=== PATIENT | male | born 1950 | race Caucasian/White ===

== ENCOUNTER 2016-12-08 11:20 | Emergency (ER) | payer OTHER ==
[2016-12-08] MEDS ORDERED: Sodium Chloride 0.9% 1,000 ML ONE (11:32)
[2016-12-08] MEDS ORDERED: ONDANSETRON 4 MG/2 ML VIAL IVP ONE (11:41)
[2016-12-08] MEDS ORDERED: NORMAL SALINE 10 ML SYRINGE FLUSH IVP PRN (11:41)
[2016-12-08] MEDS ORDERED: Pantoprazole Inj 80 MG in Normal Saline Flush 10 ML IVP ONE (11:44)
[2016-12-08] MEDS ORDERED: Sodium Chloride 0.9% 1,000 ML, Magnesium Sulfate 2gm (Premix) 50 ML with Multivitamin I... IV ONE ×5 (11:44)
[2016-12-08 11:45] VITALS: RESP 16
--- NOTE | 2016-12-08 11:51 | PDOC ---
General Adult HPI - General Chief Complaint: Drug / Alcohol Use &/or Abuse Stated Complaint: ETOH USE/ SPITTING BLOOD Date Seen by Provider: 12/08/16 Time Seen by Provider: 11:35 Source: POSITIVE: Patient Exam Limitations: POSITIVE: No limitations Nurse's Notes Reviewed & Considered: Yes - History of Present Illness Initial Comment: The patient is a 66-year-old male who presents to the emergency department stating that he does not want to live anymore and he is tired of drinking. He states he has a long-standing history of alcohol abuse since he was young. He states that he currently drinks anywhere from a pint to a fifth a day. He states that he did bring a fifth with him here to the emergency room and was drinking it in the waiting room. He states that the day before yesterday he was vomiting up some darkish colored blood. This seems to have stopped currently. He did have some dark stool a couple of days ago however has not had a bowel movement now for the past 24 hours. He states that he is just sick of living. He does not take any prescription medications at home and states that other than the alcoholism he has been generally healthy. 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 He currently denies any nausea or abdominal pain. He denies taking any over-the- counter medications or doing anything else and an attempt to harm himself. He states he just doesn't really see any reason to go on living. Have you received a tetanus shot in the past 10 years?: Unknown - Patient Home Medications Home Medications: Home Medications Albuterol Sulfate [ALBUTEROL NEB SOLN] 5 mg NEB PRN PRN 05/05/15 Citalopram HBr [Celexa Tab] 40 mg PO DAILY 05/05/[address] [PriLOSEC Cap] 20 mg PO DAILY 05/05/15 - Patient Allergies Allergies/Adverse Reactions: Allergies Allergy/AdvReac Type Severity Reaction Status Date / Time No Known Allergies Allergy Verified 05/11/15 06:24 Past Medical History - heen HEENT History: Denies History Cardiovascular History: Denies History Respiratory History: COPD, Emphysema Gastrointestinal History: GERD Genitourinary History: Denies History Endocrine History: Denies History Musculoskeletal History: Denies History Prosthesis or Implant: No Neurological History: Denies History Blood Disorders: Denies History Psychiatric History: Depression, Other (please comment) Additional Psychiatric History: suicidal history, previously attempted x 1 "attaching hose to car", "20 years ago" In Past Year Been Physically Harmed or Verbally Threatened: No History of MDRO: No Tobacco Use: Never Smoker Alcohol Use: Heavy Substance Use Type: None Previous Surgical History: Yes Type / Date of Surgery: tonsils Past Medical History Reviewed: Reviewed - No Changes ROS - Limitations ROS Limitations: No Limitations, Intoxication Constitution: REPORTS: Denies Symptoms Cardiovascular: REPORTS: Denies Cardiac Symptoms Respiratory: REPORTS: Denies Resp Symptoms Neurological: REPORTS: Denies Neuro Symptoms Gastrointestinal: REPORTS: Vomitting (Vomiting some darkish colored blood a couple of days ago, none in the last 24 hours), Black Stools (A couple of days ago none in the last 24 hours). DENIES: Abdominal Pain, Nausea Endocrine: REPORTS: Denies Symptoms Musculoskeletal: REPORTS: Denies MS Symptoms Eyes: REPORTS: Denies Symptoms ENT: REPORTS: Denies Symptoms Skin: DENIES: Rash General Adult Exam - General Appearance General Appearance: POSITIVE: Alert, No Acute Distress, Other (He is intoxicated on arrival) - HEENT HEENT: POSITIVE: Head Inspection Nml, Eyes Inspection Nml, Ears Inspection Nml, Pharynx Inspect. Nml, PERRL, EOMI, Dry Mucous Membranes - Neck Neck: POSITIVE: Normal Inspection. NEGATIVE: Lymphadenopathy - Respiratory Respiratory: POSITIVE: No Respiratory Distress, Breath Sounds Normal - Cardiovascular Cardiovascular: POSITIVE: Regular Rate & Rhythm, No Murmur Peripheral Pulses: Dorsalis-pedis (R): 2+, Dorsalis-pedis (L): 2+ - Abdomen Abdomen: Soft: (All Quadrants), Denies Tenderness: (All Quadrants), No Distention: (All Quadrants) - Back Back: POSITIVE: Normal Inspection - Skin Skin: POSITIVE: Normal Color, No Rash - Extremities Extremity: Normal ROM: (All Extremities), Normal Inspection: (All Extremities) - Neurological / Psychological Neurological: POSITIVE: Oriented X3, Motor Normal, Sensation Normal General Adult Progress - Results Reviewed by me Lab Results Reviewed: Yes Lab Results:: Laboratory Results 12/08/16 Range/Units 12:00 WBC 6.62 (4.8-10.8) 10^3/uL RBC 4.96 (4.70-6.10) 10^6/uL Hgb 14.9 (14.0-18.0) g/dL Hct 45.7 (42.0-52.0) % MCV 92.1 H (80-90) FL MCH 30.0 (27-31) PG MCHC 32.6 L (33-37) g/dL RDW Std Deviation 49.4 (39-50) fL RDW Coeff of Ishan 15.0 H (11.5-14.5) % Plt Count 264 (140-350) 10*3/uL MPV 10.0 (7.4-12.2) FL Immature Gran % (Auto) 0.3 (0-5) % Neut % (Auto) 67.4 (50-80) % Lymph % (Auto) 21.8 (10-50) % [place] % (Auto) 9.7 (5-15) % Eos % (Auto) 0 (0-8) % Baso % (Auto) 0.8 (0-1) % Immature Gran # (Auto) 0.02 10*3/UL Neut # (Auto) 4.47 10*3/UL Lymph # (Auto) 1.44 10*3/uL [place] # (Auto) 0.64 (0.3-0.8) 10*3/UL Eos # (Auto) 0 10*3/UL Baso # (Auto) 0.05 10*3/UL WBC Morphology Comment Normal morphology (NORM) Plt Morphology Comment Normal morphology (NORM) RBC Morph Comment Normal morphology (NORM) PT 10.2 (9.7-11.4) secs INR 0.99 (0.00-5.90) N/A Sodium 141 (135-145) meq/L Potassium 4.6 (3.8-5.2) meq/L Chloride 98 (98-112) meq/L Carbon Dioxide 16 L (23-33) meq/L Anion Gap 27 H (5-20) BUN 17 (7-22) mg/dL Creatinine 1.1 (0.70-1.50) mg/dL Estimated GFR > 60 (>60 ml/min/1.73m(2)) BUN/Creatinine Ratio 15.45 (6-20) Glucose 59 L (78-110) mg/dL Calculated Osmolality 291.0 (267-292) mOsm/kg Calcium 9.0 (8.7-10.7) mg/dL Magnesium 1.7 (1.6-2.4) mg/dL Total Bilirubin 1.1 (0.3-1.2) mg/dL AST 338 H (21-57) IU/L ALT 176 H (21-72) IU/L Alkaline Phosphatase 104 (38-126) IU/L Total Protein 8.5 H (6.1-8.0) g/dL Albumin 4.8 (3.5-4.8) g/dL Globulin 3.7 (2.50-4.10) g/dL Albumin/Globulin Ratio 1.20 L (1.3-2.0) mg/g Amylase 59 (30-110) U/L Lipase 94 (23-300) IU/L TSH 1.04 (0.2700-4.2000) uIU/mL Salicylates < 1.0 (0-20) mg/dl Acetaminophen < 10.0 (0-30) ug/mL Serum Alcohol 298 H (0-10) mg/dL EKG Interpreted/Reviewed By Me:: Yes EKG Interpretation:: POSITIVE: Normal Sinus Rhythm, Normal Rate, Normal Intervals, Normal QRS, Normal ST/T, Other (No acute changes) - Patient's Progress MDM / ED Course: An IV was established and the patient did receive a banana bag. He also received Zofran 4 mg IV and Protonix 80 mg IV. [facility] consultation was obtained secondary to suicidal ideation. He did become somewhat anxious and received a dose of Ativan 1 mg IV. He had no emesis here in the emergency room. He remains hemodynamically stable. His H&H is stable. He was evaluated by the counselor from [facility]. He is requesting help with detox. She is in the process of having him evaluated for the detox at [facility]. His lab work is all essentially unremarkable except for an elevated blood alcohol at 298 on arrival. He also has mildly elevated liver enzymes. At this point the patient is medically stable and we are waiting to see if he is approved for detox. The patient was accepted at [facility]. Would recommend continuation of a proton pump inhibitor for treatment of gastritis. He will be transferred to [facility] by ambulance. - Consult Counseled: POSITIVE: Patient, RE: Lab Results, RE: DX Patient Care Time - Estimated PCT Patient Care Time (In Minutes): 55 Vital Signs - Recent Vital Signs Vital Signs: Vital Signs (Last 8 hours) Temp Pulse Pulse Resp BP BP Pulse Ox 12/08/16 15:49 97.8 F 92 16 151/78 12/08/16 11:27 98.6 F 105 H 105 H 16 140/120 140/120 90 - VS Reviewed Vital Signs Reviewed: Yes Discharge Clinical Impression: Alcohol abuse, Hepatitis C, Alcohol intoxication, Alcoholic gastritis Condition: Fair Follow Up With: NONE,NONE [Primary Care Provider] - Date Decision to Transfer to Another Facility: 12/08/16 Time Decision to Transfer to Another Facility: 18:15
[2016-12-08] MEDS: LORazepam 2 MG/1 ML VIAL IVP ONE ×2 (12:00→15:53)
[2016-12-08] MEDS ORDERED: ONDANSETRON 4 MG/2 ML VIAL ONE (12:05)
[2016-12-08] MEDS ORDERED: PANTOPRAZOLE IV 40 MG VIAL ONE (12:06)
[2016-12-08] MEDS ORDERED: LORazepam 2 MG/1 ML VIAL ONE (12:06)
--- NOTE | 2016-12-08 12:10 | EKG ---
[address] [address] Measurements Intervals [place] Rate: 93 P: 53 LA: 164 QRS: 29 QRSD: 102 T: -6 QT: 389 QTc: 440 Interpretive Statements SINUS RHYTHM NONSPECIFIC T-WAVE ABNORMALITY Compared to ECG 05/05/2015 12:39:57 T-wave abnormality now present Sinus tachycardia no longer present ST (T wave) deviation no longer present Electronically Signed On 12-08-16 14:40:27 MDT by Regis Hickey MD [email or web address]
[2016-12-08 12:14] LABS: BASOPHILS # (AUTO) 0.05 10*3/UL; BASOPHILS % (AUTO) 0.8 % (0-1); EOSINOPHILS # (AUTO) 0 10*3/UL; EOSINOPHILS % (AUTO) 0 % (0-8); HEMATOCRIT 45.7 % (42.0-52.0); HEMOGLOBIN 14.9 g/dL (14.0-18.0); LYMPHOCYTES # (AUTO) 1.44 10*3/uL; MEAN CORPUSCULAR HGB CONC 32.6 g/dL (33-37); MONOCYTES # (AUTO) 0.64 10*3/UL (0.3-0.8); MONOCYTES % (AUTO) 9.7 % (5-15); NEUTROPHILS # (AUTO) 4.47 10*3/UL; NEUTROPHILS % (AUTO) 67.4 % (50-80); RED BLOOD COUNT 4.96 10^6/uL (4.70-6.10)
[2016-12-08 12:20] LABS: PLATELET MORPHOLOGY COMMENT NORMAL MORPHOLOGY (NORM); RBC MORPHOLOGY COMMENT NORMAL MORPHOLOGY (NORM); WBC MORPHOLOGY COMMENT NORMAL MORPHOLOGY (NORM)
[2016-12-08] MEDS ORDERED: Sodium Chloride 0.9% 1,000 ML PRIMARY IV ONE (12:20)
[2016-12-08] MEDS ORDERED: Sodium Chloride 0.9% 1,000 ML with Multivitamin Inj 10 ML, Thiamine Inj 100 MG, Folic A... IV ONE ×5 (12:30)
[2016-12-08 12:39] LABS: BLOOD UREA NITROGEN 17 mg/dL (7-22); BUN/CREATININE RATIO 15.45 (6-20); EST GLOMERULAR FILTRATION > 60 (>60 ml/min/1.73m(2)); MAGNESIUM 1.7 mg/dL (1.6-2.4); SERUM ALBUMIN 4.8 g/dL (3.5-4.8)
[2016-12-08 12:40] LABS: LIPASE 94 IU/L (23-300)
[2016-12-08 12:50] LABS: SALICYLATE < 1.0 mg/dl (0-20)
[2016-12-08 18:37] LABS: BILIRUBIN,URINE SMALL (NEG); CLARITY,URINE CLEAR (CLEAR); COLOR,URINE YELLOW; GLUCOSE, URINE (UA) NEGATIVE (NEG); NITRATE,URINE NEGATIVE (NEG); OCCULT BLOOD,URINE NEGATIVE (NEG); PROTEIN,URINE 30 mg/dl (NEG)
[2016-12-08 18:42] LABS: URINE SAMPLE TYPE CLEAN CATCH URINE
[2016-12-08 18:47] LABS: AMPHETAMINE SCREEN NEGATIVE (NEG); BARBITURATE SCREEN, URINE NEGATIVE (NEG); CANNABINOID SCREEN,URINE NEGATIVE (NEG); COCAINE SCREEN NEGATIVE (NEG); METHADONE URINE SCREEN NEGATIVE (NEG); METHAMPHETAMINES SCREEN,URINE NEGATIVE (NEG); OPIATE SCREEN,URINE NEGATIVE (NEG); URINE SPECIFIC GRAVITY - MAN 1.025
[2016-12-08 18:54] LABS: BACTERIA,URINE RARE; RBC,URINE 0-1 /hpf; SQUAMOUS EPITHELIAL CELL,UR FEW; URINE CASTS MODERATE; WBC,URINE 0
[2016-12-08 22:21] VITALS: TEMP 98.2
== END 2016-12-08 19:11 ==
LOC: ER 11:20
DX: F10.129 Alcohol abuse with intoxication, unspecified (principal); K29.20 Alcoholic gastritis without bleeding; B19.20 Unspecified viral hepatitis C without hepatic coma
CPT/HCPCS: 80053; 80305; 80320; 80329 ×2; 81001; 81003; 82150; 83690; 83735; 84443; 85025; 85610; 93005; 93010; 96365; 96366; 96375; 99285 ×2; J3475; J2060; J2405; J3411; J3490; J7030

== ENCOUNTER → 2016-12-26 | Outpatient (CLI) | payer OTHER | LOC: MMPC 09:00 | PROVIDERS: ATTEND Family Medicine | DX: F31.81 Bipolar II disorder (principal); F10.20 Alcohol dependence, uncomplicated; I10 Essential (primary) hypertension; K21.9 Gastro-esophageal reflux disease without esophagitis | CPT/HCPCS: 99203; G0463 ==

== ENCOUNTER 2017-01-21 16:22 | Emergency (ER) | payer OTHER ==
[2017-01-21] MEDS ORDERED: ONDANSETRON 4 MG/2 ML VIAL IVP ONE ×2 (16:30→20:55)
[2017-01-21] MEDS ORDERED: NORMAL SALINE 10 ML SYRINGE FLUSH IVP PRN (16:30)
[2017-01-21] MEDS ORDERED: Pantoprazole Inj 40 MG in Normal Saline Flush 10 ML IVP ONE (16:31)
[2017-01-21 16:34] VITALS: RESP 16
[2017-01-21] MEDS ORDERED: Sodium Chloride 0.9% 1,000 ML, Magnesium Sulfate 2gm (Premix) 50 ML with Multivitamin I... IV ONE ×5 (16:34)
--- NOTE | 2017-01-21 16:40 | PDOC ---
General Adult HPI - General Chief Complaint: Drug / Alcohol Use &/or Abuse Stated Complaint: need to detox Date Seen by Provider: 01/21/17 Time Seen by Provider: 16:25 Source: POSITIVE: Patient Exam Limitations: POSITIVE: No limitations Nurse's Notes Reviewed & Considered: Yes - History of Present Illness Initial Comment: The patient is a 66-year-old male who presents to the emergency department with suicidal thoughts and desire to quit drinking. He reports that he has a long- standing history of alcohol abuse. He started drinking after a period of sobriety about 2 or 3 weeks ago. He has been drinking approximately a sixpack of beer and a pint of hard alcohol daily. He reports that since he started drinking his depression has worsened and he has started thinking about suicide. He reports that he has several razor blades and sharp knives at home and was thinking about cutting himself. He denies doing anything to harm himself yet at this point. He last drank just prior to coming here to the emergency room. He reports that he has been vomiting off and on the past couple of days. He denies any current abdominal pain. He denies any other associated complaints currently. He is requesting transfer to [facility]. Have you received a tetanus shot in the past 10 years?: Yes - Patient Home Medications Home Medications: Home Medications Albuterol Sulfate [ALBUTEROL NEB SOLN] 5 mg NEB PRN PRN 05/05/[address] [PriLOSEC Cap] 20 mg PO DAILY 05/05/15 Citalopram Hydrobromide [Citalopram Hbr] 1 tab PO DAILY #30 tab 12/26/16 Lisinopril 1 tab PO DAILY tab 12/26/16 - Patient Allergies Allergies/Adverse Reactions: Allergies Allergy/AdvReac Type Severity Reaction Status Date / Time No Known Allergies Allergy Verified 01/21/17 16:25 Past Medical History - heen HEENT History: Denies History Cardiovascular History: Hypertension Respiratory History: COPD, Emphysema Gastrointestinal History: GERD Genitourinary History: Denies History Endocrine History: Denies History Musculoskeletal History: Denies History Prosthesis or Implant: No Neurological History: Denies History Blood Disorders: Denies History Psychiatric History: Depression, Other (please comment) Additional Psychiatric History: suicidal history, previously attempted x 1 "attaching hose to car", "20 years ago" Male Reproductive History: Denies History Cancer History: Denies History In Past Year Been Physically Harmed or Verbally Threatened: No History of MDRO: No Tobacco Use: Never Smoker Alcohol Use: Heavy Type of alcohol normally used: Beer, Hard Liquor How much alcohol do you normally drink a day?: 1 pt and a 6 pack daily Substance Use Type: None Previous Surgical History: Yes Type / Date of Surgery: tonsils Significant Family History: No pertinent family hx Past Medical History Reviewed: Reviewed - No Changes ROS - Limitations ROS Limitations: No Limitations Constitution: DENIES: Chills, Fever Cardiovascular: DENIES: Chest Pain Respiratory: REPORTS: Denies Resp Symptoms Neurological: REPORTS: Denies Neuro Symptoms Gastrointestinal: REPORTS: Nausea, Vomitting. DENIES: Abdominal Pain, Black Stools, Bloody Stools Musculoskeletal: REPORTS: Denies MS Symptoms Eyes: REPORTS: Denies Symptoms ENT: REPORTS: Denies Symptoms General Adult Exam - General Appearance General Appearance: POSITIVE: Other (The patient is awake and cooperative, he does have depressed affect and limited eye contact) - HEENT HEENT: POSITIVE: Head Inspection Nml, Eyes Inspection Nml, Pharynx Inspect. Nml , PERRL, EOMI, Dry Mucous Membranes - Neck Neck: POSITIVE: Normal Inspection. NEGATIVE: Lymphadenopathy - Respiratory Respiratory: POSITIVE: No Respiratory Distress, Breath Sounds Normal - Cardiovascular Cardiovascular: POSITIVE: Regular Rate & Rhythm, No Murmur - Abdomen Abdomen: Soft: (All Quadrants), Denies Tenderness: (All Quadrants), No Distention: (All Quadrants) - Skin Skin: POSITIVE: Normal Color, No Rash - Extremities Extremity: Normal ROM: (All Extremities), Normal Inspection: (All Extremities) - Neurological / Psychological Neurological: POSITIVE: Oriented X3, Motor Normal, Sensation Normal General Adult Progress - Results Reviewed by me Lab Results Reviewed: Yes Lab Results:: Laboratory Results 01/21/17 Range/Units 16:40 WBC 8.67 (4.8-10.8) 10^3/uL RBC 5.05 (4.70-6.10) 10^6/uL Hgb 15.3 (14.0-18.0) g/dL Hct 45.9 (42.0-52.0) % MCV 90.9 H (80-90) FL MCH 30.3 (27-31) PG MCHC 33.3 (33-37) g/dL RDW Std Deviation 48.2 (39-50) fL RDW Coeff of Ishna 14.8 H (11.5-14.5) % Plt Count 345 (140-350) 10*3/uL MPV 9.4 (7.4-12.2) FL Immature Gran % (Auto) 0.3 (0-5) % Neut % (Auto) 80.8 H (50-80) % Lymph % (Auto) 13.3 (10-50) % [place] % (Auto) 5.0 (5-15) % Eos % (Auto) 0 (0-8) % Baso % (Auto) 0.6 (0-1) % Immature Gran # (Auto) 0.03 10*3/UL Neut # (Auto) 7.01 10*3/UL Lymph # (Auto) 1.15 10*3/uL [place] # (Auto) 0.43 (0.3-0.8) 10*3/UL Eos # (Auto) 0 10*3/UL Baso # (Auto) 0.05 10*3/UL WBC Morphology Comment Normal morphology (NORM) Plt Morphology Comment Normal morphology (NORM) RBC Morph Comment Normal morphology (NORM) Sodium 143 (135-145) meq/L Potassium 4.6 (3.8-5.2) meq/L Chloride 98 (98-112) meq/L Carbon Dioxide 10 L (23-33) meq/L Anion Gap 35 H (5-20) BUN 20 (7-22) mg/dL Creatinine 1.4 (0.70-1.50) mg/dL Estimated GFR 51 (>60 ml/min/1.73m(2)) BUN/Creatinine Ratio 14.28 (6-20) Glucose 63 L (78-110) mg/dL Calculated Osmolality 296.0 H (267-292) mOsm/kg Calcium 9.1 (8.7-10.7) mg/dL Magnesium 1.7 (1.6-2.4) mg/dL Total Bilirubin 0.8 (0.3-1.2) mg/dL AST 349 H (21-57) IU/L ALT 221 H (21-72) IU/L Alkaline Phosphatase 97 (38-126) IU/L Total Protein 8.3 H (6.1-8.0) g/dL Albumin 4.7 (3.5-4.8) g/dL Globulin 3.6 (2.50-4.10) g/dL Albumin/Globulin Ratio 1.30 (1.3-2.0) mg/g Amylase 90 (30-110) U/L Lipase 101 (23-300) IU/L TSH 1.18 (0.2700-4.2000) uIU/mL Salicylates < 1.0 (0-20) mg/dl Acetaminophen < 10.0 (0-30) ug/mL Serum Alcohol 233 H (0-10) mg/dL - Patient's Progress MDM / ED Course: An IV was established and the patient did receive a banana bag as well as Protonix 40 mg IV and Zofran 4 mg IV. Mental health consultation was obtained. While awaiting approval for acceptance at [facility] the patient started to become somewhat anxious. He did receive 2 doses of Ativan IV. He also had some recurrent nausea and received a second dose of Zofran. His blood sugar was slightly low on arrival and he was allowed to eat dinner. The patient's blood work is all essentially unremarkable except for the low blood sugar, in addition his bicarbonate was low and his anion gap was elevated. This is thought to be secondary to dehydration and alcohol use. He was accepted for admission at [facility] for treatment of suicidal ideation in detox at approximately 10 :30 PM. Arrangements will be made to transfer the patient I ambulance when one becomes available. - Consult Counseled: POSITIVE: Patient, RE: Lab Results, RE: DX Patient Care Time - Estimated PCT Patient Care Time (In Minutes): 35 Vital Signs - Recent Vital Signs Vital Signs: Vital Signs (Last 8 hours) Temp Pulse Pulse Resp BP BP Pulse Ox 01/21/17 16:34 96.4 F L 108 H 16 118/64 01/21/17 16:23 96.4 F L 108 H 16 118/64 91 - VS Reviewed Vital Signs Reviewed: Yes Discharge Clinical Impression: Alcohol intoxication, Vomiting, Suicidal ideation Discharge Disposition: Transferred to Psychiatric Facility Condition: Stable Date Decision to Transfer to Another Facility: 01/21/17 Time Decision to Transfer to Another Facility: 22:30
[2017-01-21] MEDS ORDERED: LORazepam 2 MG/1 ML VIAL IVP ONE (16:45)
[2017-01-21 16:55] LABS: BASOPHILS # (AUTO) 0.05 10*3/UL; BASOPHILS % (AUTO) 0.6 % (0-1); EOSINOPHILS # (AUTO) 0 10*3/UL; EOSINOPHILS % (AUTO) 0 % (0-8); HEMATOCRIT 45.9 % (42.0-52.0); HEMOGLOBIN 15.3 g/dL (14.0-18.0); LYMPHOCYTES # (AUTO) 1.15 10*3/uL; MEAN CORPUSCULAR HEMOGLOBIN 30.3 PG (27-31); MEAN CORPUSCULAR HGB CONC 33.3 g/dL (33-37); MEAN CORPUSCULAR VOLUME 90.9 FL (80-90); MEAN PLATELET VOLUME 9.4 FL (7.4-12.2); MONOCYTES # (AUTO) 0.43 10*3/UL (0.3-0.8); NEUTROPHILS # (AUTO) 7.01 10*3/UL; NEUTROPHILS % (AUTO) 80.8 % (50-80); RED BLOOD COUNT 5.05 10^6/uL (4.70-6.10)
[2017-01-21 16:56] LABS: PLATELET MORPHOLOGY COMMENT NORMAL MORPHOLOGY (NORM); RBC MORPHOLOGY COMMENT NORMAL MORPHOLOGY (NORM); WBC MORPHOLOGY COMMENT NORMAL MORPHOLOGY (NORM)
[2017-01-21 17:05] LABS: LIPASE 101 IU/L (23-300)
[2017-01-21 17:16] LABS: BLOOD UREA NITROGEN 20 mg/dL (7-22); BUN/CREATININE RATIO 14.28 (6-20); CALCIUM 9.1 mg/dL (8.7-10.7); EST GLOMERULAR FILTRATION 51 (>60 ml/min/1.73m(2)); MAGNESIUM 1.7 mg/dL (1.6-2.4); SERUM ALBUMIN 4.7 g/dL (3.5-4.8)
[2017-01-21 17:18] LABS: SALICYLATE < 1.0 mg/dl (0-20)
[2017-01-21] MEDS: LORazepam 2 MG/1 ML VIAL IVP ONE (21:45)
[2017-01-21] MEDS ORDERED: Sodium Chloride 0.9% 1,000 ML PRIMARY IV ONE (22:45)
[2017-01-22] MEDS ORDERED: Prochlorperazine Edisylate Inj 10mg/2ml vial IVP ONE (00:01)
[2017-01-22] MEDS: LORazepam 2 MG/1 ML VIAL IVP ONE (02:23)
[2017-01-22 02:54] VITALS: TEMP 98.3
== END 2017-01-22 03:58 ==
LOC: ER 16:22
DX: R45.851 Suicidal ideations (principal); F10.129 Alcohol abuse with intoxication, unspecified; R11.2 Nausea with vomiting, unspecified
CPT/HCPCS: 80053; 80320; 80329; 82150; 83690; 83735; 84443; 85025; 90791; 96365; 96375; 96376; 99283; J0780; J2060; J2405; J3411; J3475; J3490; J7030

== ENCOUNTER → 2017-02-07 | Outpatient (CLI) | payer OTHER | LOC: MMPC 09:00 | PROVIDERS: ATTEND Family Medicine | DX: I10 Essential (primary) hypertension (principal); F31.81 Bipolar II disorder; F10.20 Alcohol dependence, uncomplicated; K21.9 Gastro-esophageal reflux disease without esophagitis; J43.2 Centrilobular emphysema | CPT/HCPCS: 99214; G0463 ==

== ENCOUNTER 2017-03-08 12:25 | Inpatient (IN) | payer OTHER ==
[2017-03-08] MEDS ORDERED: LORazepam 2 MG/1 ML VIAL IVP ONE ×2 (12:46→15:02)
[2017-03-08] MEDS ORDERED: ONDANSETRON 4 MG/2 ML VIAL IVP ONE ×2 (12:46→15:15)
[2017-03-08] MEDS ORDERED: Famotidine Inj 20 MG in Normal Saline Flush 10 ML IVP ONE (12:49)
[2017-03-08] MEDS ORDERED: Sodium Chloride 0.9% 1,000 ML, Magnesium Sulfate 2gm (Premix) 50 ML with Multivitamin I... IV ONE ×5 (12:49)
[2017-03-08] MEDS: NORMAL SALINE 10 ML SYRINGE FLUSH IVP PRN ×2 (12:55→15:10)
[2017-03-08 13:03] LABS: HEMATOCRIT 39.6 % (42.0-52.0); HEMOGLOBIN 13.8 g/dL (14.0-18.0); MEAN CORPUSCULAR HEMOGLOBIN 30.1 PG (27-31); MEAN CORPUSCULAR HGB CONC 34.8 g/dL (33-37); MEAN CORPUSCULAR VOLUME 86.5 FL (80-90); RED BLOOD COUNT 4.58 10^6/uL (4.70-6.10)
[2017-03-08 13:12] LABS: BLOOD UREA NITROGEN 58 mg/dL (7-22); BUN/CREATININE RATIO 25.21 (6-20); CALCIUM 8.9 mg/dL (8.7-10.7); EST GLOMERULAR FILTRATION 29 (>60 ml/min/1.73m(2)); SALICYLATE < 1.0 mg/dl (0-20); SERUM ALBUMIN 4.8 g/dL (3.5-4.8)
[2017-03-08] MEDS ORDERED: Sodium Chloride 0.9% 1,000 ML with Multivitamin Inj 10 ML, Thiamine Inj 100 MG, Folic A... IV ONE ×5 (13:15)
[2017-03-08 13:30] LABS: BAND NEUTROPHILS % 0 % (0-10); BASOPHILS % (MANUAL) 0 % (0-1); EOSINOPHILS % (MANUAL) 0 % (0-8); LYMPHOCYTES % (MANUAL) 18 % (10-50); MONOCYTES % (MANUAL) 7 % (0-12); NEUTROPHILS % (MANUAL) 75 % (50-80); PLATELET MORPHOLOGY COMMENT NORMAL MORPHOLOGY (NORM); RBC MORPHOLOGY COMMENT NORMAL MORPHOLOGY (NORM); WBC MORPHOLOGY COMMENT NORMAL MORPHOLOGY (NORM)
[2017-03-08 14:31] LABS: BILIRUBIN,URINE MODERATE (NEG); CLARITY,URINE CLEAR (CLEAR); GLUCOSE, URINE (UA) NEGATIVE (NEG); NITRATE,URINE NEGATIVE (NEG); OCCULT BLOOD,URINE SMALL (NEG); PROTEIN,URINE 30 mg/dl (NEG)
[2017-03-08 14:44] LABS: COLOR,URINE ORANGE
--- NOTE | 2017-03-08 14:44 | PDOC ---
General Adult HPI - General Chief Complaint: Drug / Alcohol Use &/or Abuse Stated Complaint: alcohol abuse, gastrointestinal bleeding, depression Date Seen by Provider: 03/08/17 Time Seen by Provider: 12:25 Source: POSITIVE: Patient, Other (Neighbor) Exam Limitations: POSITIVE: No limitations Nurse's Notes Reviewed & Considered: Yes - History of Present Illness Initial Comment: The patient is a 66-year-old male who was brought to the emergency room by his neighbor. Patient lives alone. The patient's sister had apparently been talking with the patient by phone and the sister was concerned that the patient was drinking too much and was becoming progressively depressed. The patient's sister then called the patient's neighbor who went to the patient's house, and brought the patient to the emergency room. Patient has a long-standing history of alcohol abuse and states he has had delirium tremens in the past. He has been treated for alcohol abuse, along with depression at the [facility]. The patient's neighbor states that when he arrived at the patient's house the patient was very depressed and states the patient asked his neighbor to "find a knife so he could kill himself". Patient states that "he is no good to anybody". Patient states that for the past 3 days he has been "vomiting some blood" and has had "black stool". No abdominal pain. Patient is supposed to be taking Prilosec and an antidepressant, but has not done so for the past 3 days. Have you received a tetanus shot in the past 10 years?: Unknown Body Location Affected: REPORTS: Abdomen, Other Timing: REPORTS: Gradual (As above) Duration: >24 hours (3 days) Severity: Moderate Quality: REPORTS: Other (Patient denies any pain anywhere) Context: REPORTS: None Modifying Factors: improves with: Vomiting, Other ("Black stools") Similar Symptoms Previously: No Recent Care Received: REPORTS: Recently Seen, Treated by , Hospitalized ( Released from [facility] 3 weeks ago) Any Prior Injuries Related to Current Complaint?: No - Patient Home Medications Home Medications: Home Medications Omeprazole DR [PriLOSEC Cap] 20 mg PO DAILY 05/05/15 Albuterol Neb Soln 0.083% 2 mg NEB PRN PRN #120 unit 02/07/17 Fluoxetine HCl [Prozac] 1 cap PO DAILY #30 cap 02/07/17 Lisinopril/Hydrochlorothiazide [Lisinopril-Hctz 20-12.5 Mg Tab] 1 tab PO DAILY # 30 tab 02/07/17 Olanzapine [Zyprexa] 20 mg PO QHS #30 tab 02/07/17 - Patient Allergies Allergies/Adverse Reactions: Allergies Allergy/AdvReac Type Severity Reaction Status Date / Time No Known Allergies Allergy Verified 03/08/17 12:37 Past Medical History - heen HEENT History: Denies History Cardiovascular History: Hypertension Respiratory History: COPD, Emphysema Gastrointestinal History: GERD Genitourinary History: Denies History Endocrine History: Denies History Musculoskeletal History: Denies History Prosthesis or Implant: No Neurological History: Denies History Blood Disorders: Denies History Psychiatric History: Depression, Other (please comment) Additional Psychiatric History: suicidal history, previously attempted x 1 "attaching hose to car", "20 years ago". states suicidal today 03/08/17. looking for knife. could not find was then looking for razor blade Cancer History: Denies History In Past Year Been Physically Harmed or Verbally Threatened: No History of MDRO: No Tobacco Use: Former Smoker Alcohol Use: Heavy Type of alcohol normally used: Beer, Hard Liquor Substance Use Type: None Previous Surgical History: Yes Type / Date of Surgery: tonsils Anesthesia Reactions: No Significant Family History: No pertinent family hx Past Medical History Reviewed: Reviewed - No Changes ROS - Limitations ROS Limitations: No Limitations Constitution: REPORTS: Denies Symptoms Cardiovascular: REPORTS: Denies Cardiac Symptoms Respiratory: REPORTS: Denies Resp Symptoms Neurological: REPORTS: Denies Neuro Symptoms Gastrointestinal: REPORTS: Vomitting, Black Stools Endocrine: REPORTS: Denies Symptoms Musculoskeletal: REPORTS: Denies MS Symptoms Genitourinary: REPORTS: Denies Symptoms Eyes: REPORTS: Denies Symptoms ENT: REPORTS: Denies Symptoms Skin: REPORTS: Denies Skin Symptoms Lympathic: REPORTS: Denies Lympathic Symptoms Immunologic: POSITIVE: Denies Symptoms Psychiatric: POSITIVE: Depression. NEGATIVE: Suicidal Thoughts (Patient denies any suicidal ideation to me. The patient's neighbor states that she asked her to "find me an isolated can kill myself". When asked about this, the patient acknowledges that he was "just feeling sorry for myself".) General Adult Exam - General Appearance General Appearance: POSITIVE: Alert, Cooperative, No Acute Distress, No Evidence of Trauma - HEENT HEENT: POSITIVE: Head Inspection Nml, Eyes Inspection Nml, Ears Inspection Nml, Nose Inspection Nml, Oral/Dental Inspect. Nml, Pharynx Inspect. Nml, PERRL, EOMI - Pupils Pupil Size: 3 mm: Bilateral (PERRLA) - Neck Neck: POSITIVE: Normal Inspection, Thyroid Normal - Respiratory Respiratory: POSITIVE: No Respiratory Distress, Breath Sounds Normal, Chest Non- Tender - Cardiovascular Cardiovascular: POSITIVE: Regular Rate & Rhythm, No Murmur, No Gallop, PMI Normal. NEGATIVE: Tachycardia (Around 104/m, regular) Peripheral Pulses: Radial (R): 2+, Radial (L): 2+ - Abdomen Abdomen: Soft: (All Quadrants), Normal Bowel Sounds: (All Quadrants), Denies Tenderness: (All Quadrants), No Splenomegaly: (All Quadrants), No Hepatomegaly: (All Quadrants), No Guarding: (All Quadrants), No Rebound: (All Quadrants), No Palpable Pulse: (All Quadrants), No Palpabale Mass: (All Quadrants), No Distention: (All Quadrants), No Rigidity: (All Quadrants) - Rectal Rectal: POSITIVE: Non Tender, Normal Rectal Tone, Black Stool, Heme Positive Stool. NEGATIVE: Heme Negative Stool - Back Back: POSITIVE: Normal Inspection - Skin Skin: POSITIVE: Normal Color, Warm, Dry, No Rash - Extremities Extremity: Non-Tender: (All Extremities), Normal ROM: (All Extremities), Normal Inspection: (All Extremities) - Neurological / Psychological Neurological: POSITIVE: Oriented X3, aircraft communicator Normal As Tested, Motor Normal, Sensation Normal, 5, 6 General Adult Progress - Results Reviewed by me Lab Results Reviewed: Yes Lab Results:: Laboratory Results 03/08/17 Range/Units 12:59 WBC 11.88 H (4.8-10.8) 10^3/uL RBC 4.58 L (4.70-6.10) 10^6/uL Hgb 13.8 L (14.0-18.0) g/dL Hct 39.6 L (42.0-52.0) % MCV 86.5 (80-90) FL MCH 30.1 (27-31) PG MCHC 34.8 (33-37) g/dL RDW Std Deviation 49.1 (39-50) fL RDW Coeff of Ishan 15.9 H (11.5-14.5) % Plt Count 389 H (140-350) 10*3/uL MPV 9.0 (7.4-12.2) FL Neutrophils % (Manual) 75 (50-80) % Band Neutrophils % 0 (0-10) % Lymphocytes % (Manual) 18 (10-50) % Monocytes % (Manual) 7 (0-12) % Eosinophils % (Manual) 0 (0-8) % Basophils % (Manual) 0 (0-1) % Metamyelocytes % Not Reportable Myelocytes % Not Reportable Promyelocytes % Not Reportable Blast Cells Not Reportable WBC Morphology Comment Normal morphology (NORM) Plt Morphology Comment Normal morphology (NORM) RBC Morph Comment Normal morphology (NORM) Sodium 131 L (135-145) meq/L Potassium 3.9 (3.8-5.2) meq/L Chloride 79 L (98-112) meq/L Carbon Dioxide 23 (23-33) meq/L Anion Gap 29 H (5-20) BUN 58 H (7-22) mg/dL Creatinine 2.3 H (0.70-1.50) mg/dL Estimated GFR 29 (>60 ml/min/1.73m(2)) BUN/Creatinine Ratio 25.21 H (6-20) Glucose 175 H (78-110) mg/dL Calculated Osmolality 291.0 (267-292) mOsm/kg Calcium 8.9 (8.7-10.7) mg/dL Total Bilirubin 1.4 H (0.3-1.2) mg/dL AST 431 H (21-57) IU/L ALT 324 H (21-72) IU/L Alkaline Phosphatase 96 (38-126) IU/L Total Protein 8.3 H (6.1-8.0) g/dL Albumin 4.8 (3.5-4.8) g/dL Globulin 3.5 (2.50-4.10) g/dL Albumin/Globulin Ratio 1.30 (1.3-2.0) mg/g TSH 1.44 (0.2700-4.2000) uIU/mL Salicylates < 1.0 (0-20) mg/dl Acetaminophen < 10.0 (0-30) ug/mL Serum Alcohol < 10 (0-10) mg/dL - Patient's Progress Pain Medication Addressed: POSITIVE: Not Applicable School/Work Release Addressed: POSITIVE: Not Applicable Re-Examine Time: 14:45 Re-Examine Comment: Patient given a banana bag of 1 L normal saline, 1 mL folic acid, 100 mg of thiamine and 2 g of magnesium sulfate. Patient also given a milligram of lorazepam IV as prophylaxis against delirium tremens. Patient feeling better after this. Status: POSITIVE: Improved, Re-Examined Antibiotics Given: No - Consult Counseled: POSITIVE: Patient, RE: Lab Results, RE: DX, RE: Need for F/U Patient Care Time - Estimated PCT Patient Care Time (In Minutes): 50 Vital Signs - Recent Vital Signs Vital Signs: Vital Signs (Last 8 hours) Temp Pulse Pulse Resp BP BP Pulse Ox 03/08/17 12:29 97.7 F 115 H 115 H 18 153/96 153/96 93 - VS Reviewed Vital Signs Reviewed: Yes Discharge Clinical Impression: Continuous chronic alcoholism, Gastrointestinal hemorrhage, Renal failure Discharge Disposition: Admit to Inpatient Condition: Fair Date Decision to Admit to Inpatient: 03/08/17 Time Decision to Admit to Inpatient: 14:40
[2017-03-08 14:45] LABS: BACTERIA,URINE FEW; RENAL EPITHELIAL CELLS,URINE RARE; SQUAMOUS EPITHELIAL CELL,UR MANY; URINE SAMPLE TYPE VOIDED SPECIMEN; URINE SPECIFIC GRAVITY - MAN 1.025; WBC,URINE 0-1
[2017-03-08 14:46] LABS: AMPHETAMINE SCREEN NEGATIVE (NEG); CANNABINOID SCREEN,URINE NEGATIVE (NEG); COCAINE SCREEN NEGATIVE (NEG); METHADONE URINE SCREEN NEGATIVE (NEG); METHAMPHETAMINES SCREEN,URINE NEGATIVE (NEG); OPIATE SCREEN,URINE NEGATIVE (NEG); URINE CASTS MODERATE
--- NOTE | 2017-03-08 15:22 | PDOC ---
History and Physical - History of Present Illness Date and Time of Service: 03/08/2017 4 PM Chief Complaint: Depression, nausea and vomiting with dark stool. Been drinking heavily the last few days. History of Present Illness: This is a66 years old male with medical history significant for history of depression with previous admission to [facility] last one was in early January, hepatitis C and hypertension was brought to the hospital by a neighbor, apparently the patient's sister had been talking with him and she was concerned about him as she thought that he was drinking too much and was becoming progressively depressed so she called the neighbor who brought him to the hospital. In the ER he was depressed and mentioned that that he's been vomiting with some blood and is passing dark stool. He couldn't tell me how many times he vomited today or yesterday. He denied abdominal pain. He is depressed and thinking of taking his own life however he didn't act on it. He said his depression is worse when he drink heavily. He was giving fluids in the ER including banana bag and was admitted. Has mild nausea. Mild dizziness. No other symptoms. He stopped taking his the antidepressant and the Prilosec and lisinopril 3 or 4 days ago. Past Medical History Medical History: 1. Alcohol abuse. 2. Depression with intermittent suicidal ideation. 3. Tobacco abuse. 4. History of hepatitis C. 5. History of admission to the hospital in 2014 for depression and suicidal ideation and alcohol withdrawal was transferred to [facility]. 6. History of COPD. 7. History of hypertension Surgical History: 1. Tonsillectomy. 2. History of colonoscopy 5 years ago was normal, never had EGD before Pertinent Family History: He states his father of kidney problems and mother of emphysema. Past Social History: Patient currently is drinking about a fifth a day with 7 can of beer he had intermittent episodes of sobriety in his life. x2. Has 2 children and is estranged from. He quit smoking a few years ago, used to use drugs many years ago Tobacco Use: Former Smoker Do you dip or chew tobacco: Yes Substance Use Type: None Alcohol Use: Heavy (He said he is been drinking a fifth a day with beer maybe 7 cans a day. Last time he had a drink was this morning.) Medication / Allergies Home Medications: Home Medications Medication Instructions Recorded Confirmed Type Omeprazole DR [PriLOSEC Cap] 20 mg PO DAILY 05/05/15 03/08/17 History Albuterol Neb Soln 0.083% 2 mg NEB PRN PRN #120 unit 02/07/17 03/08/17 Clinic Fluoxetine HCl [Prozac] 1 cap PO DAILY #30 cap 02/07/17 03/08/17 Clinic Lisinopril/Hydrochlorothiazide 1 tab PO DAILY #30 tab 02/07/17 03/08/17 Clinic [Lisinopril-Hctz 20-12.5 Mg Tab] Olanzapine [Zyprexa] 20 mg PO QHS #30 tab 02/07/17 03/08/17 Clinic Allergies/Adverse Reactions: Allergies Allergy/AdvReac Type Severity Reaction Status Date / Time No Known Allergies Allergy Verified 03/08/17 12:37 Review of Systems - Review of Systems All Systems: Reviewed & No Additional Complaints Except as Stated Exam - Vitals Vital Signs: Vital Signs Temperature 97.0 F Temperature Source Temporal Artery Scan Pulse Rate [Pulse Oximeter] 104 Respiratory Rate 16 Blood Pressure [Right Arm] 157/88 Pulse Ox 91 Oxygen Delivery Method Room Air - General General Appearance: POSITIVE: No Acute Distress, Cooperative - Head Head Exam: POSITIVE: Normal Inspection, Atraumatic - Eye Eye Exam: POSITIVE: Normal Appearance - ENT ENT Exam: POSITIVE: Normal Exam - Neck Neck Exam: POSITIVE: Normal Inspection - Respiratory Respiratory Exam: POSITIVE: Clear to Auscultation - Bilaterally - Cardiovascular Cardiovascular Exam: POSITIVE: RRR - GI/Abdominal GI/Abdominal Exam: POSITIVE: Normal Bowel Sounds, Non Tender, Non Distended, Soft - Rectal Rectal Exam: POSITIVE: Deferred - External Exam: POSITIVE: Deferred - Extremities Extremities Exam: POSITIVE: Normal Inspection - Back Back Exam: POSITIVE: Normal Inspection - Neurological Neurological Exam: POSITIVE: Alert, Oriented x 3, CN II-XII Intact - Psychiatric Psychiatric Exam: POSITIVE: Flat Affect - Integumentary Integumentary Exam: POSITIVE: Normal Color, Dry Results - Labs CBC and BMP: 03/08/17 12:59 03/08/17 12:59 Assessment and Plan - Patient Problems (1) Gastrointestinal bleeding Current Visit: Yes Status: Acute Comment: We will put him on IV fluid, will put him on IV Protonix and IV octreotide because of his history of hepatitis C. will repeat his hemoglobin later on today. I did speak with Dr. White and he said he needs scope but as an outpatient. I think will watch his hemoglobin and vital signs and if there is no recurrence of bleeding with a stabilization will think about stopping the octreotide tomorrow. I think it's more like alcohol-induced gastritis causing the bleeding. (2) Acute renal failure Current Visit: Yes Status: Acute Comment: He has acute renal failure may be secondary to dehydration we'll continue with IV fluid repeat his labs in the morning. (3) Alcohol withdrawal Current Visit: No Status: Acute Comment: He is at risk of withdrawal put him on CI [place] protocol Qualifiers: Complication of substance-induced condition: uncomplicated Qualifier Code(s): (F10.230) Alcohol dependence with withdrawal, uncomplicated (4) Depression with suicidal ideation Current Visit: No Status: Acute Comment: will put him one-to-one, he said he's not taking his medication or the last 3-4 days so well put him back on his Prozac and olanzapine. We'll consult [facility] tomorrow (5) Hypertension Current Visit: Yes Status: Acute Comment: We'll hold his lisinopril now because of the renal failure
[2017-03-08] MEDS ORDERED: LIDOCAINE W/ SODIUM BICARB 0.5 ML SYR SUBD PRN (15:49)
[2017-03-08] MEDS ORDERED: MAG HYDROX/AL HYDROX/SIMETH 30 ML SUSP PO PRN (15:49)
[2017-03-08] MEDS ORDERED: MAGNESIUM 400 MG/5 ML - 30 ML (MILK OF MAGNESIA) PO PRN (15:49)
[2017-03-08] MEDS ORDERED: ONDANSETRON 4 MG/2 ML VIAL IV PRN (15:49)
[2017-03-08] MEDS ORDERED: Loperamide Tab 2 MG TABLET PO PRN (15:49)
[2017-03-08] MEDS ORDERED: NORMAL SALINE 10 ML SYRINGE FLUSH IVP PRN (15:49)
[2017-03-08] MEDS ORDERED: LORazepam 1 mg tab (ETOH withdrawal) PO PRN (15:49)
[2017-03-08] MEDS ORDERED: Pantoprazole Inj 80 MG in Normal Saline Flush 10 ML IVP ONE (15:52)
[2017-03-08] MEDS ORDERED: SODIUM CHLORIDE 0.9% IV SCH (16:00)
[2017-03-08] MEDS ORDERED: OCTREOTIDE ACETATE IV SCH (16:00)
[2017-03-08] MEDS: LORazepam Inj(ETOH withdrawal) 2 MG/ML VIAL IVP PRN ×4 (16:10→23:58)
[2017-03-08] MEDS: Sodium Chloride 0.9% 1,000 ML PRIMARY IV SCH (16:10)
[2017-03-08] MEDS: OLANZapine Tab 5 MG TAB PO SCH (20:35)
[2017-03-08 21:00] LABS: HEMATOCRIT 35.4 % (42.0-52.0); HEMOGLOBIN 12.3 g/dL (14.0-18.0); MEAN CORPUSCULAR HEMOGLOBIN 30.4 PG (27-31); MEAN CORPUSCULAR HGB CONC 34.7 g/dL (33-37); MEAN CORPUSCULAR VOLUME 87.4 FL (80-90); MEAN PLATELET VOLUME 8.7 FL (7.4-12.2); RED BLOOD COUNT 4.05 10^6/uL (4.70-6.10)
[2017-03-08] MEDS ORDERED: MAGNESIUM OXIDE 400 MG TABLET PO SCH (21:00)
[2017-03-08 21:23] LABS: PLATELET MORPHOLOGY COMMENT NORMAL MORPHOLOGY (NORM)
[2017-03-08 21:24] LABS: RBC MORPHOLOGY COMMENT SEE COMMENTS (NORM); WBC MORPHOLOGY COMMENT SEE COMMENTS (NORM)
[2017-03-08 21:25] LABS: BAND NEUTROPHILS % 0 % (0-10); BASOPHILS % (MANUAL) 0 % (0-1); EOSINOPHILS % (MANUAL) 0 % (0-8); LYMPHOCYTES % (MANUAL) 12 % (10-50); METAMYELOCYTES % 0 %; MONOCYTES % (MANUAL) 9 % (0-12); MYELOCYTES % 0 %; NEUTROPHILS % (MANUAL) 79 % (50-80); PROMYELOCYTES % 0 %
[2017-03-09] MEDS: Sodium Chloride 0.9% 1,000 ML PRIMARY IV SCH ×5 (01:43→20:23)
[2017-03-09] MEDS: LORazepam Inj(ETOH withdrawal) 2 MG/ML VIAL IVP PRN ×2 (01:48→14:28)
[2017-03-09 04:28] LABS: BASOPHILS # (AUTO) 0.02 10*3/UL; BASOPHILS % (AUTO) 0.2 % (0-1); EOSINOPHILS # (AUTO) 0.02 10*3/UL; EOSINOPHILS % (AUTO) 0.2 % (0-8); HEMATOCRIT 34.6 % (42.0-52.0); HEMOGLOBIN 11.6 g/dL (14.0-18.0); LYMPHOCYTES # (AUTO) 1.19 10*3/uL; MEAN CORPUSCULAR HEMOGLOBIN 29.8 PG (27-31); MEAN CORPUSCULAR HGB CONC 33.5 g/dL (33-37); MEAN CORPUSCULAR VOLUME 88.9 FL (80-90); MEAN PLATELET VOLUME 8.7 FL (7.4-12.2); MONOCYTES # (AUTO) 1.55 10*3/UL (0.3-0.8); MONOCYTES % (AUTO) 14.5 % (5-15); NEUTROPHILS % (AUTO) 73.8 % (50-80); RED BLOOD COUNT 3.89 10^6/uL (4.70-6.10)
[2017-03-09 04:37] LABS: BUN/CREATININE RATIO 30.62 (6-20); CALCIUM 7.6 mg/dL (8.7-10.7); PLATELET MORPHOLOGY COMMENT NORMAL MORPHOLOGY (NORM); RBC MORPHOLOGY COMMENT NORMAL MORPHOLOGY (NORM); SERUM ALBUMIN 3.5 g/dL (3.5-4.8); WBC MORPHOLOGY COMMENT NORMAL MORPHOLOGY (NORM)
--- NOTE | 2017-03-09 09:02 | PDOC(PROG) ---
Date and Time of Service: 03/09/2017 9 AM Interval History: Subjective Patient is denying complaint, there is no more vomiting, no more passing of dark stools. No abdominal pain. Still feeling depressed. Objective : Data - Labs CBC and BMP: 03/09/17 04:18 03/09/17 04:18 Labs - Last 24 Hours: Laboratory Results 03/08/17 03/08/17 03/08/17 Range/Units 14:44 16:29 20:55 WBC 11.25 H (4.8-10.8) 10^3/uL RBC 4.05 L (4.70-6.10) 10^6/uL Hgb 12.3 L (14.0-18.0) g/dL Hct 35.4 L (42.0-52.0) % MCV 87.4 (80-90) FL MCH 30.4 (27-31) PG MCHC 34.7 (33-37) g/dL RDW Std Deviation 49.1 (39-50) fL RDW Coeff of Ishan 15.6 H (11.5-14.5) % Plt Count 250 (140-350) 10*3/uL MPV 8.7 (7.4-12.2) FL Immature Gran % (Auto) (0-5) % Neut % (Auto) (50-80) % Lymph % (Auto) (10-50) % Elk % (Auto) (5-15) % Eos % (Auto) (0-8) % Baso % (Auto) (0-1) % Immature Gran # (Auto) 10*3/UL Neut # (Auto) 10*3/UL Lymph # (Auto) 10*3/uL Elk # (Auto) (0.3-0.8) 10*3/UL Eos # (Auto) 10*3/UL Baso # (Auto) 10*3/UL Neutrophils % (Manual) 79 (50-80) % Band Neutrophils % 0 (0-10) % Lymphocytes % (Manual) 12 (10-50) % Monocytes % (Manual) 9 (0-12) % Eosinophils % (Manual) 0 (0-8) % Basophils % (Manual) 0 (0-1) % Metamyelocytes % 0 % Myelocytes % 0 % Promyelocytes % 0 % Blast Cells 0 (0-1) % WBC Morphology Comment See comments (NORM) Plt Morphology Comment Normal morphology (NORM) RBC Morph Comment See comments (NORM) PT 11.3 (9.7-11.4) secs INR 1.10 (0.00-5.90) N/A APTT 26.2 (22.6-31.3) SECS Sodium (135-145) meq/L Potassium (3.8-5.2) meq/L Chloride (98-112) meq/L Carbon Dioxide (23-33) meq/L Anion Gap (5-20) BUN (7-22) mg/dL Creatinine (0.70-1.50) mg/dL Estimated GFR (>60 ml/min/1.73m(2)) BUN/Creatinine Ratio (6-20) Glucose (78-110) mg/dL Calculated Osmolality (267-292) mOsm/kg Calcium (8.7-10.7) mg/dL Total Bilirubin (0.3-1.2) mg/dL AST (21-57) IU/L ALT (21-72) IU/L Alkaline Phosphatase (38-126) IU/L Total Protein (6.1-8.0) g/dL Albumin (3.5-4.8) g/dL Globulin (2.50-4.10) g/dL Albumin/Globulin Ratio (1.3-2.0) mg/g Blood Type O POSITIVE Antibody Screen Negative 03/09/17 Range/Units 04:18 WBC 10.70 (4.8-10.8) 10^3/uL RBC 3.89 L (4.70-6.10) 10^6/uL Hgb 11.6 L (14.0-18.0) g/dL Hct 34.6 L (42.0-52.0) % MCV 88.9 (80-90) FL MCH 29.8 (27-31) PG MCHC 33.5 (33-37) g/dL RDW Std Deviation 49.3 (39-50) fL RDW Coeff of Ishan 15.5 H (11.5-14.5) % Plt Count 206 (140-350) 10*3/uL MPV 8.7 (7.4-12.2) FL Immature Gran % (Auto) 0.2 (0-5) % Neut % (Auto) 73.8 (50-80) % Lymph % (Auto) 11.1 (10-50) % Elk % (Auto) 14.5 (5-15) % Eos % (Auto) 0.2 (0-8) % Baso % (Auto) 0.2 (0-1) % Immature Gran # (Auto) 0.02 10*3/UL Neut # (Auto) 7.90 10*3/UL Lymph # (Auto) 1.19 10*3/uL Elk # (Auto) 1.55 H (0.3-0.8) 10*3/UL Eos # (Auto) 0.02 10*3/UL Baso # (Auto) 0.02 10*3/UL Neutrophils % (Manual) (50-80) % Band Neutrophils % (0-10) % Lymphocytes % (Manual) (10-50) % Monocytes % (Manual) (0-12) % Eosinophils % (Manual) (0-8) % Basophils % (Manual) (0-1) % Metamyelocytes % % Myelocytes % % Promyelocytes % % Blast Cells (0-1) % WBC Morphology Comment Normal morphology (NORM) Plt Morphology Comment Normal morphology (NORM) RBC Morph Comment Normal morphology (NORM) PT (9.7-11.4) secs INR (0.00-5.90) N/A APTT (22.6-31.3) SECS Sodium 131 L (135-145) meq/L Potassium 4.0 (3.8-5.2) meq/L Chloride 89 L (98-112) meq/L Carbon Dioxide 32 (23-33) meq/L Anion Gap 10 (5-20) BUN 49 H (7-22) mg/dL Creatinine 1.6 H (0.70-1.50) mg/dL Estimated GFR 44 (>60 ml/min/1.73m(2)) BUN/Creatinine Ratio 30.62 H (6-20) Glucose 129 H (78-110) mg/dL Calculated Osmolality 286.0 (267-292) mOsm/kg Calcium 7.6 L (8.7-10.7) mg/dL Total Bilirubin 1.2 (0.3-1.2) mg/dL AST 225 H (21-57) IU/L ALT 218 H (21-72) IU/L Alkaline Phosphatase 74 (38-126) IU/L Total Protein 6.4 (6.1-8.0) g/dL Albumin 3.5 (3.5-4.8) g/dL Globulin 2.8 (2.50-4.10) g/dL Albumin/Globulin Ratio 1.20 L (1.3-2.0) mg/g Blood Type Antibody Screen Objective : Exam - General General Appearance: No Acute Distress, Cooperative, Thin - Head Head Exam: Normal Inspection - Eye Eye Exam: Normal Appearance - ENT ENT Exam: Normal Exam - Neck Neck Exam: Normal Inspection - Respiratory Respiratory Exam: Clear to Auscultation - Bilaterally - Cardiovascular Cardiovascular Exam: RRR - GI/Abdominal GI/Abdominal Exam: Normal Bowel Sounds, Non Tender, Non Distended, Soft - Rectal Rectal Exam: Deferred - External Exam: Deferred - Extremities Extremities Exam: Normal Inspection Assessment and Plan - Patient Problems (1) Gastrointestinal bleeding Current Visit: Yes Status: Acute Comment: Seems to be stabilized continue the Protonix drip, I think though that I'll DC the octreotide. Will advance his diet to full liquid. We'll cut back on his fluid. (2) Acute renal failure Current Visit: Yes Status: Acute Comment: His Kidney function is improving continue hydration at a lower rate repeat it tomorrow (3) Alcohol withdrawal Current Visit: No Status: Acute Comment: Continue CIWA protocol continue multivitamins Qualifiers: Complication of substance-induced condition: uncomplicated Qualifier Code(s): (F10.230) Alcohol dependence with withdrawal, uncomplicated (4) Depression with suicidal ideation Current Visit: No Status: Acute Comment: He'll be started on Celexa. He didn't get the Zyprexa last night I checked with pharmacy apparently we do have it and he should get it tonight. Will consult [facility] [facility]. (5) Hypertension Current Visit: Yes Status: Acute Comment: Continue holding lisinopril because of his renal failure
[2017-03-09] MEDS: FLUoxetine 20 MG CAPSULE PO SCH (13:19)
[2017-03-09] MEDS: OLANZapine Tab 5 MG TAB PO SCH (20:21)
[2017-03-10] MEDS: Sodium Chloride 0.9% 1,000 ML PRIMARY IV SCH ×2 (01:15→17:49)
[2017-03-10 05:04] LABS: BASOPHILS # (AUTO) 0.01 10*3/UL; BASOPHILS % (AUTO) 0.2 % (0-1); EOSINOPHILS # (AUTO) 0.02 10*3/UL; EOSINOPHILS % (AUTO) 0.4 % (0-8); HEMATOCRIT 31.6 % (42.0-52.0); HEMOGLOBIN 10.4 g/dL (14.0-18.0); LYMPHOCYTES # (AUTO) 0.97 10*3/uL; MEAN CORPUSCULAR HEMOGLOBIN 30.3 PG (27-31); MEAN CORPUSCULAR HGB CONC 32.9 g/dL (33-37); MEAN CORPUSCULAR VOLUME 92.1 FL (80-90); MONOCYTES % (AUTO) 13.1 % (5-15); NEUTROPHILS # (AUTO) 3.63 10*3/UL; NEUTROPHILS % (AUTO) 67.9 % (50-80); RED BLOOD COUNT 3.43 10^6/uL (4.70-6.10)
[2017-03-10 05:09] LABS: BLOOD UREA NITROGEN 25 mg/dL (7-22); CALCIUM 7.7 mg/dL (8.7-10.7); EST GLOMERULAR FILTRATION > 60 (>60 ml/min/1.73m(2))
[2017-03-10 05:11] LABS: PLATELET MORPHOLOGY COMMENT NORMAL MORPHOLOGY (NORM); RBC MORPHOLOGY COMMENT NORMAL MORPHOLOGY (NORM); WBC MORPHOLOGY COMMENT NORMAL MORPHOLOGY (NORM)
[2017-03-10] MEDS ORDERED: Metoclopramide Tab 10 MG TAB PO PRN (08:49)
--- NOTE | 2017-03-10 08:55 | PDOC(PROG) ---
Date and Time of Service: 03/10/2017 9 AM Interval History: Subjective No more vomiting. He didn't have a bowel movement yet. No abdominal pain. He is having the hiccups. Objective : Data - Labs CBC and BMP: 03/10/17 04:53 03/10/17 04:53 Labs - Last 24 Hours: Laboratory Results 03/10/17 Range/Units 04:53 WBC 5.34 (4.8-10.8) 10^3/uL RBC 3.43 L (4.70-6.10) 10^6/uL Hgb 10.4 L (14.0-18.0) g/dL Hct 31.6 L (42.0-52.0) % MCV 92.1 H (80-90) FL MCH 30.3 (27-31) PG MCHC 32.9 L (33-37) g/dL RDW Std Deviation 50.4 H (39-50) fL RDW Coeff of Ishan 15.3 H (11.5-14.5) % Plt Count 149 (140-350) 10*3/uL MPV 9.0 (7.4-12.2) FL Immature Gran % (Auto) 0.2 (0-5) % Neut % (Auto) 67.9 (50-80) % Lymph % (Auto) 18.2 (10-50) % Keith % (Auto) 13.1 (5-15) % Eos % (Auto) 0.4 (0-8) % Baso % (Auto) 0.2 (0-1) % Immature Gran # (Auto) 0.01 10*3/UL Neut # (Auto) 3.63 10*3/UL Lymph # (Auto) 0.97 10*3/uL Keith # (Auto) 0.70 (0.3-0.8) 10*3/UL Eos # (Auto) 0.02 10*3/UL Baso # (Auto) 0.01 10*3/UL WBC Morphology Comment Normal morphology (NORM) Plt Morphology Comment Normal morphology (NORM) RBC Morph Comment Normal morphology (NORM) Sodium 138 (135-145) meq/L Potassium 3.3 L (3.8-5.2) meq/L Chloride 99 (98-112) meq/L Carbon Dioxide 31 (23-33) meq/L Anion Gap 8 (5-20) BUN 25 H (7-22) mg/dL Creatinine 1.0 (0.70-1.50) mg/dL Estimated GFR > 60 (>60 ml/min/1.73m(2)) BUN/Creatinine Ratio 25.00 H (6-20) Glucose 84 (78-110) mg/dL Calculated Osmolality 288.0 (267-292) mOsm/kg Calcium 7.7 L (8.7-10.7) mg/dL Total Bilirubin 0.8 (0.3-1.2) mg/dL AST 157 H (21-57) IU/L ALT 158 H (21-72) IU/L Alkaline Phosphatase 67 (38-126) IU/L Total Protein 5.5 L (6.1-8.0) g/dL Albumin 3.0 L (3.5-4.8) g/dL Globulin 2.5 (2.50-4.10) g/dL Albumin/Globulin Ratio 1.20 L (1.3-2.0) mg/g Objective : Exam - General General Appearance: No Acute Distress, Cooperative - Head Head Exam: Normal Inspection - Eye Eye Exam: Normal Appearance - ENT ENT Exam: Normal Exam - Neck Neck Exam: Normal Inspection - Respiratory Respiratory Exam: Clear to Auscultation - Bilaterally - Cardiovascular Cardiovascular Exam: RRR - GI/Abdominal GI/Abdominal Exam: Normal Bowel Sounds, Non Tender, Non Distended, Soft - Rectal Rectal Exam: Deferred - External Exam: Deferred - Extremities Extremities Exam: Normal Inspection - Back Back Exam: Normal Inspection - Neurological Neurological Exam: Alert, Oriented x 3, CN II-XII Intact, Moves All Extremities Equally - Psychiatric Psychiatric Exam: Flat Affect - Integumentary Integumentary Exam: Normal Color Assessment and Plan - Patient Problems (1) Gastrointestinal bleeding Current Visit: Yes Status: Acute Comment: I think this is stabilized, will cut back on his fluid consider stopping it at one point today. Will switch the Protonix drip to by mouth. We' ll ask PT and OT to work with him. For the hiccups will add Reglan as needed. (2) Acute renal failure Current Visit: Yes Status: Acute Comment: This is resolved. (3) Alcohol withdrawal Current Visit: No Status: Acute Comment: Continue CIWA protocol. He plans to quit alcohol. Continue multivitamins Qualifiers: Complication of substance-induced condition: uncomplicated Qualifier Code(s): (F10.230) Alcohol dependence with withdrawal, uncomplicated (4) Depression with suicidal ideation Current Visit: No Status: Acute Comment: Continue same medications. [facility] saw him yesterday and suggested follow-up as an outpatient. (5) Hypertension Current Visit: Yes Status: Acute Comment: Blood pressure is acceptable continue holding lisinopril.
[2017-03-10] MEDS: Potassium Chloride Tab 10 MEQ TAB PO SCH ×2 (10:11→21:25)
[2017-03-10] MEDS: PANTOPRAZOLE 40 MG TABLET PO SCH ×2 (10:11→21:25)
[2017-03-10] MEDS: FLUoxetine 20 MG CAPSULE PO SCH (10:12)
[2017-03-10] MEDS: NORMAL SALINE 10 ML SYRINGE FLUSH IVP PRN (10:58)
[2017-03-10] MEDS: OLANZapine Tab 5 MG TAB PO SCH (21:25)
[2017-03-11 04:25] VITALS: RESP 16; TEMP 98.1
[2017-03-11 05:37] LABS: BASOPHILS # (AUTO) 0.03 10*3/UL; BASOPHILS % (AUTO) 0.7 % (0-1); EOSINOPHILS # (AUTO) 0.09 10*3/UL; EOSINOPHILS % (AUTO) 2.1 % (0-8); HEMATOCRIT 31.9 % (42.0-52.0); HEMOGLOBIN 10.4 g/dL (14.0-18.0); LYMPHOCYTES # (AUTO) 0.91 10*3/uL; MEAN CORPUSCULAR HGB CONC 32.6 g/dL (33-37); MEAN CORPUSCULAR VOLUME 91.9 FL (80-90); MEAN PLATELET VOLUME 8.7 FL (7.4-12.2); MONOCYTES # (AUTO) 0.57 10*3/UL (0.3-0.8); MONOCYTES % (AUTO) 13.1 % (5-15); NEUTROPHILS # (AUTO) 2.72 10*3/UL; NEUTROPHILS % (AUTO) 62.5 % (50-80); RED BLOOD COUNT 3.47 10^6/uL (4.70-6.10)
[2017-03-11 05:46] LABS: BLOOD UREA NITROGEN 12 mg/dL (7-22); BUN/CREATININE RATIO 13.33 (6-20); CALCIUM 8.1 mg/dL (8.7-10.7); EST GLOMERULAR FILTRATION > 60 (>60 ml/min/1.73m(2)); SERUM ALBUMIN 2.8 g/dL (3.5-4.8)
[2017-03-11 07:09] LABS: PLATELET MORPHOLOGY COMMENT NORMAL MORPHOLOGY (NORM); RBC MORPHOLOGY COMMENT NORMAL MORPHOLOGY (NORM); WBC MORPHOLOGY COMMENT NORMAL MORPHOLOGY (NORM)
[2017-03-11] MEDS: Potassium Chloride Tab 10 MEQ TAB PO SCH (08:35)
[2017-03-11] MEDS: FLUoxetine 20 MG CAPSULE PO SCH (08:35)
[2017-03-11] MEDS: PANTOPRAZOLE 40 MG TABLET PO SCH (08:36)
--- NOTE | 2017-03-11 08:50 | PDOC(PROG) ---
Date and Time of Service: 03/11/2017 8:45 AM Interval History: Subjective Patient feels a lot better he said, no vomiting, no more melena. No other symptoms. Wants to go home. Objective : Data - Labs CBC and BMP: 03/11/17 05:32 03/11/17 05:32 Labs - Last 24 Hours: Laboratory Results 03/11/17 Range/Units 05:32 WBC 4.35 L (4.8-10.8) 10^3/uL RBC 3.47 L (4.70-6.10) 10^6/uL Hgb 10.4 L (14.0-18.0) g/dL Hct 31.9 L (42.0-52.0) % MCV 91.9 H (80-90) FL MCH 30.0 (27-31) PG MCHC 32.6 L (33-37) g/dL RDW Std Deviation 49.1 (39-50) fL RDW Coeff of Ishan 15.1 H (11.5-14.5) % Plt Count 117 L (140-350) 10*3/uL MPV 8.7 (7.4-12.2) FL Immature Gran % (Auto) 0.7 (0-5) % Neut % (Auto) 62.5 (50-80) % Lymph % (Auto) 20.9 (10-50) % [place] % (Auto) 13.1 (5-15) % Eos % (Auto) 2.1 (0-8) % Baso % (Auto) 0.7 (0-1) % Immature Gran # (Auto) 0.03 10*3/UL Neut # (Auto) 2.72 10*3/UL Lymph # (Auto) 0.91 10*3/uL [place] # (Auto) 0.57 (0.3-0.8) 10*3/UL Eos # (Auto) 0.09 10*3/UL Baso # (Auto) 0.03 10*3/UL WBC Morphology Comment Normal morphology (NORM) Plt Morphology Comment Normal morphology (NORM) RBC Morph Comment Normal morphology (NORM) Sodium 138 (135-145) meq/L Potassium 3.8 (3.8-5.2) meq/L Chloride 106 (98-112) meq/L Carbon Dioxide 27 (23-33) meq/L Anion Gap 5 (5-20) BUN 12 (7-22) mg/dL Creatinine 0.9 (0.70-1.50) mg/dL Estimated GFR > 60 (>60 ml/min/1.73m(2)) BUN/Creatinine Ratio 13.33 (6-20) Glucose 89 (78-110) mg/dL Calculated Osmolality 284.0 (267-292) mOsm/kg Calcium 8.1 L (8.7-10.7) mg/dL Total Bilirubin 0.8 (0.3-1.2) mg/dL AST 124 H (21-57) IU/L ALT 131 H (21-72) IU/L Alkaline Phosphatase 69 (38-126) IU/L Total Protein 5.3 L (6.1-8.0) g/dL Albumin 2.8 L (3.5-4.8) g/dL Globulin 2.5 (2.50-4.10) g/dL Albumin/Globulin Ratio 1.10 L (1.3-2.0) mg/g Objective : Exam - General General Appearance: No Acute Distress, Cooperative - Head Head Exam: Normal Inspection, Atraumatic - Eye Eye Exam: Normal Appearance - ENT ENT Exam: Normal Exam - Neck Neck Exam: Normal Inspection - Respiratory Respiratory Exam: Clear to Auscultation - Bilaterally - Cardiovascular Cardiovascular Exam: RRR - GI/Abdominal GI/Abdominal Exam: Normal Bowel Sounds, Non Tender, Non Distended, Soft - Rectal Rectal Exam: Deferred - External Exam: Deferred - Extremities Extremities Exam: Normal Inspection - Back Back Exam: Normal Inspection - Neurological Neurological Exam: Alert, Oriented x 3 - Psychiatric Psychiatric Exam: Normal Affect - Integumentary Integumentary Exam: Normal Color Assessment and Plan - Patient Problems (1) Gastrointestinal bleeding Current Visit: Yes Status: Acute Comment: Seem to be resolved. He need follow-up as an outpatient with Dr. Pillai. We'll discharge him to resume Prilosec (2) Acute renal failure Current Visit: Yes Status: Acute Comment: This is resolved, I think will DC the lisinopril/hydrochlorothiazide will put him on Norvasc on discharge (3) Alcohol withdrawal Current Visit: No Status: Acute Comment: This is resolved, he said he planning on quitting alcohol Qualifiers: Complication of substance-induced condition: uncomplicated Qualifier Code(s): (F10.230) Alcohol dependence with withdrawal, uncomplicated (4) Depression with suicidal ideation Current Visit: No Status: Acute Comment: He is not suicidal anymore, he'll follow-up with [facility] as an outpatient continue same medications (5) Hypertension Current Visit: Yes Status: Acute Comment: We'll switch him to Norvasc
[2017-03-11] MEDS ORDERED: Multivitamin Tab 1 TAB PO SCH (09:00)
[2017-03-11] MEDS ORDERED: Thiamine Tab 100 MG TAB PO SCH (09:00)
--- NOTE | 2017-03-11 09:02 | DCSUMMARY ---
Hospitalization Summary Admit Date: 03/08/17 Discharge Date: 03/11/17 Hospital Course: Discharge diagnoses 1. GI bleed 2. Acute renal failure resolved 3. Alcohol abuse 4. History of depression 5. History of hepatitis C 7. History of COPD 8. History of hypertension Hospital course This is a 66 years old male with medical history significant for history of depression who previous admission to [facility] last one was in early January, hepatitis C and hypertension who was brought to the hospital by a neighbor, apparently the patient's sister had been talking with him and she was concerned about him as she thought that he was drinking too much and was becoming progressively depressed so she called the neighbor who brought him to the hospital. In the ER he was depressed and mentioned that he's been vomiting with some blood in it and also passing dark stool. He denied abdominal pain. Initially he said he was depressed and thinking of taking his own life however he didn't act on it. He was given IV fluid including banana bag and was admitted. Exam when I saw him he had a flat affect otherwise the rest was not remarkable. We put him on Protonix drip also on octreotide drip and put him also on IV fluid. His lab did showed mild anemia and the acute renal failure. With hydration his kidney function improved and returned back to normal. The drop in his hemoglobin was mild he did not need blood transfusion. Because of his depression we did ask [employer] to see him and they suggested follow-up as an outpatient. Because of the GI bleed I did speak with Dr. Pillai and he suggested follow-up with him as an outpatient. On the day of discharge he felt much better, he was not suicidal anymore and his kidney function improved. He will follow-up with his physician as an outpatient. I did discontinue his lisinopril/ hydrochlorothiazide and prescribed Norvasc instead as I thought the Lisinopril / hydrochlorothiazide also contributed to his renal failure. He need follow-up with his primary as an outpatient to follow-up on his blood pressure. And he follow-up with the Dr. Pillai for colonoscopy and the [facility] life. Laboratory Results 03/08/17 03/08/17 03/08/17 Range/Units 12:59 14:26 14:44 WBC 11.88 H (4.8-10.8) 10^3/uL RBC 4.58 L (4.70-6.10) 10^6/uL Hgb 13.8 L (14.0-18.0) g/dL Hct 39.6 L (42.0-52.0) % MCV 86.5 (80-90) FL MCH 30.1 (27-31) PG MCHC 34.8 (33-37) g/dL RDW Std Deviation 49.1 (39-50) fL RDW Coeff of Ishan 15.9 H (11.5-14.5) % Plt Count 389 H (140-350) 10*3/uL MPV 9.0 (7.4-12.2) FL Immature Gran % (Auto) (0-5) % Neut % (Auto) (50-80) % Lymph % (Auto) (10-50) % [place] % (Auto) (5-15) % Eos % (Auto) (0-8) % Baso % (Auto) (0-1) % Immature Gran # (Auto) 10*3/UL Neut # (Auto) 10*3/UL Lymph # (Auto) 10*3/uL [place] # (Auto) (0.3-0.8) 10*3/UL Eos # (Auto) 10*3/UL Baso # (Auto) 10*3/UL Neutrophils % (Manual) 75 (50-80) % Band Neutrophils % 0 (0-10) % Lymphocytes % (Manual) 18 (10-50) % Monocytes % (Manual) 7 (0-12) % Eosinophils % (Manual) 0 (0-8) % Basophils % (Manual) 0 (0-1) % Metamyelocytes % Not Reportable Myelocytes % Not Reportable Promyelocytes % Not Reportable Blast Cells Not Reportable WBC Morphology Comment Normal morphology (NORM) Plt Morphology Comment Normal morphology (NORM) RBC Morph Comment Normal morphology (NORM) PT 11.3 (9.7-11.4) secs INR 1.10 (0.00-5.90) N/A APTT 26.2 (22.6-31.3) SECS Sodium 131 L (135-145) meq/L Potassium 3.9 (3.8-5.2) meq/L Chloride 79 L (98-112) meq/L Carbon Dioxide 23 (23-33) meq/L Anion Gap 29 H (5-20) BUN 58 H (7-22) mg/dL Creatinine 2.3 H (0.70-1.50) mg/dL Estimated GFR 29 (>60 ml/min/1.73m(2)) BUN/Creatinine Ratio 25.21 H (6-20) Glucose 175 H (78-110) mg/dL Calculated Osmolality 291.0 (267-292) mOsm/kg Calcium 8.9 (8.7-10.7) mg/dL Total Bilirubin 1.4 H (0.3-1.2) mg/dL AST 431 H (21-57) IU/L ALT 324 H (21-72) IU/L Alkaline Phosphatase 96 (38-126) IU/L Total Protein 8.3 H (6.1-8.0) g/dL Albumin 4.8 (3.5-4.8) g/dL Globulin 3.5 (2.50-4.10) g/dL Albumin/Globulin Ratio 1.30 (1.3-2.0) mg/g TSH 1.44 (0.2700-4.2000) uIU/mL Ur Collection Type Voided specimen Urine Color [place] Urine Clarity Clear (CLEAR) Urine pH 5.0 (5.0-8.5) Ur Specific [place] 1.025 (1.005-1.030) U Specif Grav (Refrac) 1.025 Urine Protein 30 (NEG) mg/dl Urine Glucose (UA) Negative (NEG) mg/dL Urine Ketones 15 (NEG) Urine Occult Blood Small H (NEG) Urine Nitrate Negative (NEG) Urine Bilirubin Moderate (NEG) Urine Urobilinogen 1.0 (0.2) EU/dL Ur Leukocyte Esterase Negative (NEG) Urine RBC None (NONE) /hpf Urine WBC 0-1 (NONE) Ur Squamous Epith Cells Many (NONE) Ur Renal Epithelial Cell Rare (NONE) Urine Crystals None Urine Bacteria Few (NONE) Urine Casts Moderate (NONE) Urine Mucus Many (NONE) Urine Trichomonas None (NONE) Urine Yeast None (NONE) Ur Culture Indicated? Culture not set Salicylates < 1.0 (0-20) mg/dl Urine Opiates Screen Negative (NEG) Ur Buprenorphine Negative (NEG) Ur Oxycodone Screen Negative (NEG) Urine Methadone Screen Negative (NEG) Ur Propoxyphene Screen Negative (NEG) Acetaminophen < 10.0 (0-30) ug/mL Barbiturate Screen Negative (NEG) U Tricyclic Antidepress Negative (NEG) Phencyclidine Screen Negative (NEG) Amphetamines Screen Negative (NEG) U Methamphetamines Scrn Negative (NEG) Benzodiazepines Screen Negative (NEG) Cocaine Screen Negative (NEG) U Marijuana (THC) Screen Negative (NEG) Serum Alcohol < 10 (0-10) mg/dL Blood Type Antibody Screen 03/08/17 03/08/17 03/09/17 Range/Units 16:29 20:55 04:18 WBC 11.25 H 10.70 (4.8-10.8) 10^3/uL RBC 4.05 L 3.89 L (4.70-6.10) 10^6/uL Hgb 12.3 L 11.6 L (14.0-18.0) g/dL Hct 35.4 L 34.6 L (42.0-52.0) % MCV 87.4 88.9 (80-90) FL MCH 30.4 29.8 (27-31) PG MCHC 34.7 33.5 (33-37) g/dL RDW Std Deviation 49.1 49.3 (39-50) fL RDW Coeff of Ishan 15.6 H 15.5 H (11.5-14.5) % Plt Count 250 206 (140-350) 10*3/uL MPV 8.7 8.7 (7.4-12.2) FL Immature Gran % (Auto) 0.2 (0-5) % Neut % (Auto) 73.8 (50-80) % Lymph % (Auto) 11.1 (10-50) % [place] % (Auto) 14.5 (5-15) % Eos % (Auto) 0.2 (0-8) % Baso % (Auto) 0.2 (0-1) % Immature Gran # (Auto) 0.02 10*3/UL Neut # (Auto) 7.90 10*3/UL Lymph # (Auto) 1.19 10*3/uL [place] # (Auto) 1.55 H (0.3-0.8) 10*3/UL Eos # (Auto) 0.02 10*3/UL Baso # (Auto) 0.02 10*3/UL Neutrophils % (Manual) 79 (50-80) % Band Neutrophils % 0 (0-10) % Lymphocytes % (Manual) 12 (10-50) % Monocytes % (Manual) 9 (0-12) % Eosinophils % (Manual) 0 (0-8) % Basophils % (Manual) 0 (0-1) % Metamyelocytes % 0 Myelocytes % 0 Promyelocytes % 0 Blast Cells 0 WBC Morphology Comment See comments Normal morphology (NORM) Plt Morphology Comment Normal morphology Normal morphology (NORM) RBC Morph Comment See comments Normal morphology (NORM) PT (9.7-11.4) secs INR (0.00-5.90) N/A APTT (22.6-31.3) SECS Sodium 131 L (135-145) meq/L Potassium 4.0 (3.8-5.2) meq/L Chloride 89 L (98-112) meq/L Carbon Dioxide 32 (23-33) meq/L Anion Gap 10 (5-20) BUN 49 H (7-22) mg/dL Creatinine 1.6 H (0.70-1.50) mg/dL Estimated GFR 44 (>60 ml/min/1.73m(2)) BUN/Creatinine Ratio 30.62 H (6-20) Glucose 129 H (78-110) mg/dL Calculated Osmolality 286.0 (267-292) mOsm/kg Calcium 7.6 L (8.7-10.7) mg/dL Total Bilirubin 1.2 (0.3-1.2) mg/dL AST 225 H (21-57) IU/L ALT 218 H (21-72) IU/L Alkaline Phosphatase 74 (38-126) IU/L Total Protein 6.4 (6.1-8.0) g/dL Albumin 3.5 (3.5-4.8) g/dL Globulin 2.8 (2.50-4.10) g/dL Albumin/Globulin Ratio 1.20 L (1.3-2.0) mg/g TSH (0.2700-4.2000) uIU/mL Ur Collection Type Urine Color Urine Clarity (CLEAR) Urine pH (5.0-8.5) Ur Specific [place] (1.005-1.030) U Specif Grav (Refrac) Urine Protein (NEG) mg/dl Urine Glucose (UA) (NEG) mg/dL Urine Ketones (NEG) Urine Occult Blood (NEG) Urine Nitrate (NEG) Urine Bilirubin (NEG) Urine Urobilinogen (0.2) EU/dL Ur Leukocyte Esterase (NEG) Urine RBC (NONE) /hpf Urine WBC (NONE) Ur Squamous Epith Cells (NONE) Ur Renal Epithelial Cell (NONE) Urine Crystals Urine Bacteria (NONE) Urine Casts (NONE) Urine Mucus (NONE) Urine Trichomonas (NONE) Urine Yeast (NONE) Ur Culture Indicated? Salicylates (0-20) mg/dl Urine Opiates Screen (NEG) Ur Buprenorphine (NEG) Ur Oxycodone Screen (NEG) Urine Methadone Screen (NEG) Ur Propoxyphene Screen (NEG) Acetaminophen (0-30) ug/mL Barbiturate Screen (NEG) U Tricyclic Antidepress (NEG) Phencyclidine Screen (NEG) Amphetamines Screen (NEG) U Methamphetamines Scrn (NEG) Benzodiazepines Screen (NEG) Cocaine Screen (NEG) U Marijuana (THC) Screen (NEG) Serum Alcohol (0-10) mg/dL Blood Type O POSITIVE Antibody Screen Negative 03/10/17 03/11/17 Range/Units 04:53 05:32 WBC 5.34 4.35 L (4.8-10.8) 10^3/uL RBC 3.43 L 3.47 L (4.70-6.10) 10^6/uL Hgb 10.4 L 10.4 L (14.0-18.0) g/dL Hct 31.6 L 31.9 L (42.0-52.0) % MCV 92.1 H 91.9 H (80-90) FL MCH 30.3 30.0 (27-31) PG MCHC 32.9 L 32.6 L (33-37) g/dL RDW Std Deviation 50.4 H 49.1 (39-50) fL RDW Coeff of Ishan 15.3 H 15.1 H (11.5-14.5) % Plt Count 149 117 L (140-350) 10*3/uL MPV 9.0 8.7 (7.4-12.2) FL Immature Gran % (Auto) 0.2 0.7 (0-5) % Neut % (Auto) 67.9 62.5 (50-80) % Lymph % (Auto) 18.2 20.9 (10-50) % [place] % (Auto) 13.1 13.1 (5-15) % Eos % (Auto) 0.4 2.1 (0-8) % Baso % (Auto) 0.2 0.7 (0-1) % Immature Gran # (Auto) 0.01 0.03 10*3/UL Neut # (Auto) 3.63 2.72 10*3/UL Lymph # (Auto) 0.97 0.91 10*3/uL [place] # (Auto) 0.70 0.57 (0.3-0.8) 10*3/UL Eos # (Auto) 0.02 0.09 10*3/UL Baso # (Auto) 0.01 0.03 10*3/UL Neutrophils % (Manual) (50-80) % Band Neutrophils % (0-10) % Lymphocytes % (Manual) (10-50) % Monocytes % (Manual) (0-12) % Eosinophils % (Manual) (0-8) % Basophils % (Manual) (0-1) % Metamyelocytes % Myelocytes % Promyelocytes % Blast Cells WBC Morphology Comment Normal morphology Normal morphology (NORM) Plt Morphology Comment Normal morphology Normal morphology (NORM) RBC Morph Comment Normal morphology Normal morphology (NORM) PT (9.7-11.4) secs INR (0.00-5.90) N/A APTT (22.6-31.3) SECS Sodium 138 138 (135-145) meq/L Potassium 3.3 L 3.8 (3.8-5.2) meq/L Chloride 99 106 (98-112) meq/L Carbon Dioxide 31 27 (23-33) meq/L Anion Gap 8 5 (5-20) BUN 25 H 12 (7-22) mg/dL Creatinine 1.0 0.9 (0.70-1.50) mg/dL Estimated GFR > 60 > 60 (>60 ml/min/1.73m(2)) BUN/Creatinine Ratio 25.00 H 13.33 (6-20) Glucose 84 89 (78-110) mg/dL Calculated Osmolality 288.0 284.0 (267-292) mOsm/kg Calcium 7.7 L 8.1 L (8.7-10.7) mg/dL Total Bilirubin 0.8 0.8 (0.3-1.2) mg/dL AST 157 H 124 H (21-57) IU/L ALT 158 H 131 H (21-72) IU/L Alkaline Phosphatase 67 69 (38-126) IU/L Total Protein 5.5 L 5.3 L (6.1-8.0) g/dL Albumin 3.0 L 2.8 L (3.5-4.8) g/dL Globulin 2.5 2.5 (2.50-4.10) g/dL Albumin/Globulin Ratio 1.20 L 1.10 L (1.3-2.0) mg/g TSH (0.2700-4.2000) uIU/mL Ur Collection Type Urine Color Urine Clarity (CLEAR) Urine pH (5.0-8.5) Ur Specific [place] (1.005-1.030) U Specif Grav (Refrac) Urine Protein (NEG) mg/dl Urine Glucose (UA) (NEG) mg/dL Urine Ketones (NEG) Urine Occult Blood (NEG) Urine Nitrate (NEG) Urine Bilirubin (NEG) Urine Urobilinogen (0.2) EU/dL Ur Leukocyte Esterase (NEG) Urine RBC (NONE) /hpf Urine WBC (NONE) Ur Squamous Epith Cells (NONE) Ur Renal Epithelial Cell (NONE) Urine Crystals Urine Bacteria (NONE) Urine Casts (NONE) Urine Mucus (NONE) Urine Trichomonas (NONE) Urine Yeast (NONE) Ur Culture Indicated? Salicylates (0-20) mg/dl Urine Opiates Screen (NEG) Ur Buprenorphine (NEG) Ur Oxycodone Screen (NEG) Urine Methadone Screen (NEG) Ur Propoxyphene Screen (NEG) Acetaminophen (0-30) ug/mL Barbiturate Screen (NEG) U Tricyclic Antidepress (NEG) Phencyclidine Screen (NEG) Amphetamines Screen (NEG) U Methamphetamines Scrn (NEG) Benzodiazepines Screen (NEG) Cocaine Screen (NEG) U Marijuana (THC) Screen (NEG) Serum Alcohol (0-10) mg/dL Blood Type Antibody Screen Discharge instruction Diet regular activity as started Medications Home Medications Medication Instructions Recorded Confirmed Type Omeprazole DR [PriLOSEC] 20 mg PO DAILY 05/05/15 03/08/17 History Albuterol Neb Soln 0.083% 2 mg NEB PRN PRN #120 unit 02/07/17 03/08/17 Clinic Fluoxetine HCl [Prozac] 1 cap PO DAILY #30 cap 02/07/17 03/08/17 Clinic Olanzapine [Zyprexa] 20 mg PO QHS #30 tab 02/07/17 03/08/17 Clinic Amlodipine Besylate [Norvasc] 5 mg PO DAILY #30 tablet 03/11/17 Rx Multivitamin Tab [Thera Tab] 1 tab PO DAILY tab 03/11/17 Rx Follow-up with PCP as an outpatient, with Dr. Pillai in 1-2 weeks, [facility] 1-2 weeks Condition at discharge was stable for discharge Exam - Vitals Vital Signs: Vital Signs Temperature 98.1 F Temperature Source Temporal Artery Scan Pulse Rate [Pulse Oximeter] 100 Pulse Rate 77 Respiratory Rate 16 Blood Pressure [Left Arm] 145/87 Blood Pressure [Right Arm] 158/93 Blood Pressure 131/81 Pulse Ox 95 Oxygen Flow Rate 1 Oxygen Delivery Method Nasal Cannula Height 6 ft 2 in Weight 202 lb 3.2 oz Patient Problems - Patient Problem List (1) Gastrointestinal bleeding Status: Acute (2) Acute renal failure Status: Acute (3) Alcohol withdrawal Status: Acute Qualifiers: Complication of substance-induced condition: uncomplicated Qualifier Code(s): (F10.230) Alcohol dependence with withdrawal, uncomplicated (4) Depression with suicidal ideation Status: Acute (5) Hypertension Status: Acute
--- NOTE | 2017-03-11 10:05 | PT.PROG ---
Progress Note Progress Note: S: pt reports he still feels unsteady with walking. pt reports he was taken of O2 today. pt reports his HR has been running in 110's and above. pt reports he is hope full to go home this afternoon. O: nsg okay'd prior to PT. Pt instructed to ambulate 200 feet down to therapy gym with CGA x1 . pt demo unsteadiness at times and demo lateral sway. pt tends to demo lateral sway to left able to self correct but unsteady. post ambulation pt vitals were 88% O2 sats, and 133 HR. pt rested 5 mins and HR decreased to 126. pt instructed in UBE 2/2. bike x 5 mins unable to keep at pace to keep lights on bike turned on, UE 3# weights biceps and overhead press, RTB all planes, sit to stands x 10 reps, box step ups #2 with walker due to difficulty with balance. pt O2 sats were 91 post and HR 122. pt given 5 mins rest prior to ambulation back to room and left in chair with chair alarm activited and call light within reach. A: pt tolerated therapy fair. pt demo lateral sway with gait and is unsteady w box step up activity. pt has 2-3 stairs at home and not recommended to return home at this time due to unsteadiness with gait and balance disturbances. pt continues to benefit from skilled therapy. P: cont per POC.
--- NOTE | 2017-03-12 12:28 | PTI REPORT ---
Thank you for the referral of Isidro Matute. He was seen on 03/10/17 for an inpatient evaluation secondary to weakness. SUBJECTIVE: The patient is a 66-year-old male. The patient reports that he lives in an apartment and has a couple stairs to get into his home. The patient reports he was overall previously healthy. The patient reports he likes to read. The patient reports he lives by himself and previously took care of all ADLs independently. The patient reports that he doesn't use a walker or a cane. Nursing okayed treatment prior to PT. PAST MEDICAL HISTORY: Past medical history can be found in the patient's medical record. OBJECTIVE FINDINGS: General observations: The patient was seen supine in bed on one liter of oxygen and IV. Bed mobility: The patient is independent with bed mobility. Transfers: The patient requires contact guard assist for sit to stand transfers for safety. Balance: Static balance is fair. Seated balance is good. Dynamic balance is poor. Ambulation: The patient required contact guard assist for gait with bilateral hand hold assist due to safety concerns. The patient demonstrated four loss of balances during ambulation but was able to self correct during 150 feet of ambulation today. Endurance/Oxygen: The patient was fatigued post treatment and oxygen saturation dropped post therapy session. ASSESSMENT: The patient is a 66-year-old male that presents with generalized weakness and decreased functional mobility. The patient would benefit from skilled therapy in order to improve strength, balance, and return to prior level of function. The patient's prognosis for therapy is fair. Problem List: Decreased strength Decreased endurance Decreased functional mobility Short-Term Goals: To be met by discharge from inpatient: Patient will be independent with all transfers with least restrictive assistive device. Patient will be able to ascend and descend a flight of stairs in order to return to prior living situation and to be able to get around in the community independently. Patient will be able to tolerate 30 minutes of activity in order to improve endurance. Long-Term Goals: To be met following discharge from inpatient: Patient will be able to return home safely and perform all ADLs independently. TREATMENT PLAN: Patient will be seen B.I.D during the week and one time per day over the weekend as an inpatient for therapeutic exercise, therapeutic activity, neuromuscular reeducation, and gait training. INITIAL TREATMENT: Treatment today consisted of the initial evaluation. The patient was instructed to ambulation 150 feet with contact guard assist x2 with bilateral hand hold assist around the nurse's station. The patient demonstrated four losses of balance but was able to self correct. The patient fatigued post ambulation. It is recommended that the patient use a front wheeled walker to improve stability during gait. The patient was left in care of nursing staff with call light within reach. TAHMIN[place]
[2017-03-13] MEDS ORDERED: Thiamine Tab 100 MG TAB PO SCH (15:52)
== END 2017-03-11 12:10 | disposition home or self-care (01) | DRG 378 ==
LOC: ER 12:25 → MED/SURG 14:40
PROVIDERS: ADMIT Internal Medicine; ATTEND Internal Medicine
DX: F10.20 Alcohol dependence, uncomplicated (principal); K92.2 Gastrointestinal hemorrhage, unspecified; N19 Unspecified kidney failure; N17.9 Acute kidney failure, unspecified; R45.851 Suicidal ideations; F10.10 Alcohol abuse, uncomplicated; B19.20 Unspecified viral hepatitis C without hepatic coma; J44.9 Chronic obstructive pulmonary disease, unspecified
CPT/HCPCS: 36415; 80053; 80305; 80320; 80329 ×2; 81001; 81003; 84443; 85007; 85610; 85730; 96365; 96375; 99285 ×2; J3475; 82948; 85025; 86850; 86900; 86901; 90791; 94761; 97110; 97161; 97530; J2060; J2405; J3411; J3490; J7030; J7050

== ENCOUNTER → 2017-05-03 | Outpatient (CLI) | payer OTHER ==
[2017-05-03 12:51] LABS: HEMATOCRIT 38.1 % (42.0-52.0); HEMOGLOBIN 12.5 g/dL (14.0-18.0); MEAN CORPUSCULAR HEMOGLOBIN 28.4 PG (27-31); MEAN CORPUSCULAR HGB CONC 32.8 g/dL (33-37); MEAN CORPUSCULAR VOLUME 86.6 FL (80-90); MEAN PLATELET VOLUME 10.8 FL (7.4-12.2); RED BLOOD COUNT 4.4 10^6/uL (4.70-6.10)
== END ==
LOC: MOB LAB 10:22
PROVIDERS: ATTEND Family Medicine
DX: R63.4 Abnormal weight loss (principal); R11.10 Vomiting, unspecified; R19.7 Diarrhea, unspecified; I10 Essential (primary) hypertension; F31.81 Bipolar II disorder
CPT/HCPCS: 36415; 84443; 85027; 99214

== ENCOUNTER → 2017-05-10 | Outpatient (CLI) | payer OTHER | LOC: MMPC 09:00 | PROVIDERS: ATTEND Family Medicine | DX: F31.81 Bipolar II disorder (principal); I10 Essential (primary) hypertension; F10.20 Alcohol dependence, uncomplicated | CPT/HCPCS: 99213; G0463 ==